=== PATIENT | female | born 1980 | race Caucasian/White ===

== ENCOUNTER 2022-11-25 11:28 | Outpatient (REF) | payer OTHER, SELFPAY ==
[2022-11-26 13:12] LABS: Chlamydia Result Negative (Negative); GC Result Negative (Negative)
== END 2022-11-25 11:29 | disposition home or self-care (01) ==
LOC: LBN 11:28
PROVIDERS: Visit Provider Obstetrics & Gynecology
DX: N94.9 Unspecified condition associated with female genital organs and menstrual cycle (principal); B96.89 Other specified bacterial agents as the cause of diseases classified elsewhere
CPT/HCPCS: 87491; 87591; 87480; 87510; 87660

== ENCOUNTER 2022-12-10 16:05 | Outpatient (REF) | payer BC, SELFPAY | END 2022-12-10 16:06 | disposition home or self-care (01) | LOC: LBN 16:05 | PROVIDERS: Visit Provider Obstetrics & Gynecology | DX: N90.89 Other specified noninflammatory disorders of vulva and perineum (principal) | CPT/HCPCS: 87480; 87510; 87660 ==

== ENCOUNTER 2023-01-07 16:29 | Outpatient (REF) | payer BC, SELFPAY ==
[2023-01-09 22:42] LABS: HSV 1 DNA Result Negative (Negative); HSV 2 DNA Result Negative (Negative)
== END 2023-01-07 16:30 | disposition home or self-care (01) ==
LOC: LBN 16:29
PROVIDERS: Visit Provider Obstetrics & Gynecology Gynecology
DX: N90.89 Other specified noninflammatory disorders of vulva and perineum (principal); Z11.59 Encounter for screening for other viral diseases
CPT/HCPCS: 87529

== ENCOUNTER → 2023-01-19 00:38 | Outpatient (CLI) | payer BC, SELFPAY ==
--- NOTE | 2023-01-19 10:14 | DI.MAMMO_ITS ---
Exam(s) MAMMO SCREENING EXAM: MAMMO SCREENING CLINICAL HISTORY: screening, z12.39. TECHNIQUE: Bilateral full field digital CC and MLO mammographic images were obtained with 3D tomosyn thesis and utilizing computer aided detection (CAD). COMPARISON: None. This is a baseline mammogram on this 42-year-old patient. FINDINGS: Fibroglandular tissue pattern is dense, this somewhat decreasing the sensitivity of the mammogram fin ding hidden underlying lesions. There are no CAD designations. There are no spiculated masses nor malignant appearing microcalcification groups. There is no significant architectural distortion nor skin thickening-retraction. IMPRESSION: Dense bilateral fibroglandular tissue. No obvious radiographic evidence of malignancy. BI-RADS Category 1 - Negative Breast Density - Category C - Heterogeneously dense Breast density Category C or D implies that the patient has dense breast tissue. Dense breast tissue can make it harder to find cancer on a mammogram. Dense breast tissue is also associated with an incr eased risk of breast cancer. This information about the result of the mammogram report was provided to the patient to raise their awareness. Use this report when you speak with the patient about their risks for breast cancer, which includes their family history. At that time, you may recommend additional screening tests (Ultrasoun d or MRI) as these tests may add significant information. A negative radiographic report should not delay biopsy if a dominant or clinically suspicious mass is present. Up to ten percent of cancers are not identified on mammography. A negative report may reinforce clinical impression. Adenosis and dense breasts may obscure an underlying neoplasm. False positive reports average 6 to 10%. Patient will receive a letter notifying them of these results.
== END ==
PROVIDERS: Visit Provider Obstetrics & Gynecology
DX: Z12.31 Encounter for screening mammogram for malignant neoplasm of breast (principal)
CPT/HCPCS: 77063; 77067

== ENCOUNTER 2023-04-13 14:12 | Outpatient (REF) | payer BC, SELFPAY | END 2023-04-13 14:13 | disposition home or self-care (01) | LOC: LBN 14:12 | PROVIDERS: PCP Obstetrics & Gynecology; Visit Provider Obstetrics & Gynecology | DX: N89.8 Other specified noninflammatory disorders of vagina (principal); N94.89 Other specified conditions associated with female genital organs and menstrual cycle | CPT/HCPCS: 87480; 87510; 87660 ==

== ENCOUNTER 2023-05-10 12:51 | Outpatient (REF) | payer BC, SELFPAY | END 2023-05-10 12:52 | disposition home or self-care (01) | LOC: LBN 12:51 | PROVIDERS: PCP Obstetrics & Gynecology; Visit Provider Obstetrics & Gynecology | DX: N76.0 Acute vaginitis (principal); N89.8 Other specified noninflammatory disorders of vagina | CPT/HCPCS: 87480; 87510; 87660 ==

== ENCOUNTER → 2023-06-27 01:53 | Outpatient (CLI) | payer BC, SELFPAY ==
--- NOTE | 2023-06-27 14:30 | DI.MAMMO_ITS ---
Exam(s) MAMMO DIAGNOSTIC UNI US BREAST LT LIMITED EXAM: MAMMO DIAGNOSTIC UNI and U/S breast LT limited CLINICAL HISTORY: left breast lump. TECHNIQUE: Craniocaudal and mediolateral oblique Full Field Digital Mammography views of the left br east with Computer Aided Diagnosis followed by Tomosynthesis and left breast ultrasound. COMPARISON: Comparison is with prior examinations. FINDINGS: Mammography/Tomosynthesis: Masses/Architectural Distortion: None seen. Microcalcifictions: No suspicious pleomorphic-type are seen. Skin Thickening/Nipple Retraction: None. Limited left breast US: Echotexture: Normal appearance of the glandular tissue. Shadowing: No suspicious foci. Cyst: None. Solid lesions: None seen. Ductal dilation: None. IMPRESSION: 1. No evidence of malignancy is noted. 2. Unless there is more urgent need, follow-up screening mammography is recommended, as per [place] [employer] guidelines. 3. The findings were discussed with the patient on the date of the examination. BI-RADS Category 1 - Negative Breast Density - Category C - Heterogeneously dense Breast density Category C or D implies that the patient has dense breast tissue. Dense breast tissue can make it harder to find cancer on a mammogram. Dense breast tissue is also associated with an incr eased risk of breast cancer. This information about the result of the mammogram report was provided to the patient to raise their awareness. Use this report when you speak with the patient about their risks for breast cancer, which includes their family history. At that time, you may recommend additional screening tests (Ultrasoun d or MRI) as these tests may add significant information. A negative radiographic report should not delay biopsy if a dominant or clinically suspicious mass is present. Up to ten percent of cancers are not identified on mammography. A negative report may reinforce clinical impression. Adenosis and dense breasts may obscure an underlying neoplasm. False positive reports average 6 to 10%. Patient will receive a letter notifying them of these results.
== END ==
PROVIDERS: PCP Obstetrics & Gynecology; Visit Provider Obstetrics & Gynecology
DX: N63.25 Unspecified lump in the left breast, overlapping quadrants; R92.322 Mammographic fibroglandular density, left breast
CPT/HCPCS: 76642; 77061; 77065; G0279

== ENCOUNTER 2023-09-21 01:44 | Outpatient (CLI) | payer BC, SELFPAY ==
[2023-09-21 10:20] LABS: Abs Immature Grans 0.02 10^3/uL (0.0-0.06); Absolute Basophil Count 0.05 10^3/uL (0.0-0.2); Absolute Eosinophil Count 0.12 10^3/uL (0.0-0.7); Absolute Lymphocyte Count 1.58 10^3/uL (1.2-3.4); Absolute Monocyte Count 0.43 10^3/uL (0.1-0.8); Absolute Neutrophil Count 4.37 10^3/uL (1.2-6.7); Basophils % 0.8 %; Eosinophils % 1.8 %; HCT 37.8 % (36.0-46.0); HGB 12.8 g/dL (11.2-15.7); Immature Grans % 0.3 %; MCH 29.4 pg (27.0-33.0); MCHC 33.9 % (32.0-36.0); MCV 87 fL (80-95); MPV 10.4 fL (8.0-11.0); Monocytes % 6.5 %; Neutrophils % 66.6 %; Platelet Count 292 10^3/uL (130-400); RBC 4.36 10^6/uL (3.93-5.22); RDW 13.4 % (11.7-14.6); RDW-SD 42.5 fL; WBC 6.57 10^3/uL (4.4-10.8)
[2023-09-21 10:36] LABS: ALT 18 U/L (14-59); AST 14 U/L (15-37); Albumin 3.6 g/dL (3.4-5.0); Alkaline Phosphatase 63 U/L (46-116); Anion Gap 5.6 mmol/L (3-11); BUN 12 mg/dL (7-18); Bilirubin, Total 0.39 mg/dL (0.2-1.0); CO2 30.4 mmol/L (21.0-32.0); CREATININE 0.8 mg/dL (0.55-1.02); Calcium 9.3 mg/dL (8.5-10.1); Chloride 106 mmol/L (98-107); Estimated GFR 94.28 (mL/min/1.73m2); Glucose 103 mg/dL (74-106); Potassium 4.1 mmol/L (3.5-5.1); Sodium 142 mmol/L (136-145)
[2023-09-22 09:16] LABS: IgG 989 mg/dL (610-1616)
== END 2023-09-21 01:45 | disposition home or self-care (01) ==
PROVIDERS: PCP Obstetrics & Gynecology; Visit Provider Allergy & Immunology
DX: D83.9 Common variable immunodeficiency, unspecified (principal)
CPT/HCPCS: 36415; 80053; 82784; 85025

== ENCOUNTER 2023-11-02 11:36 | Outpatient (REF) | payer BC, SELFPAY | END 2023-11-02 11:37 | disposition home or self-care (01) | LOC: LBN 11:36 | PROVIDERS: PCP Obstetrics & Gynecology; Visit Provider Obstetrics & Gynecology | DX: N89.8 Other specified noninflammatory disorders of vagina (principal); Z00.00 Encounter for general adult medical examination without abnormal findings; F43.21 Adjustment disorder with depressed mood; D84.9 Immunodeficiency, unspecified | CPT/HCPCS: 87480; 87510; 87660 ==

== ENCOUNTER 2024-01-04 02:55 | Outpatient (CLI) | payer BC, SELFPAY ==
[2024-01-04 15:08] LABS: Panorama Kit Sent via Fed Ex
[2024-01-04 15:16] LABS: Abs Immature Grans 0.02 10^3/uL (0.0-0.06); Absolute Basophil Count 0.03 10^3/uL (0.0-0.2); Absolute Eosinophil Count 0.07 10^3/uL (0.0-0.7); Absolute Lymphocyte Count 1.69 10^3/uL (1.2-3.4); Absolute Neutrophil Count 4.53 10^3/uL (1.2-6.7); Basophils % 0.4 %; HCT 35.6 % (36.0-46.0); HGB 11.9 g/dL (11.2-15.7); Immature Grans % 0.3 %; Lymphocytes % 24.7 %; MCH 29.7 pg (27.0-33.0); MCHC 33.4 % (32.0-36.0); MCV 89 fL (80-95); MPV 10.3 fL (8.0-11.0); Monocytes % 7.3 %; Neutrophils % 66.3 %; Platelet Count 243 10^3/uL (130-400); RBC 4.01 10^6/uL (3.93-5.22); RDW 13.2 % (11.7-14.6); RDW-SD 43.3 fL; WBC 6.84 10^3/uL (4.4-10.8)
[2024-01-04 15:26] LABS: Hemoglobin A1C 5.6 % (<5.7)
[2024-01-04 22:37] LABS: Hepatitis B Surface Ag Negative (Negative)
[2024-01-04 23:09] LABS: Hepatitis C Ab w Rflx HCV PCR Negative (Negative)
[2024-01-04 23:10] LABS: HIV-1/2 Ag & Ab Screen Negative (Negative)
[2024-01-05 09:22] LABS: IgG 788 mg/dL (610-1616)
[2024-01-05 10:57] LABS: Varicella IgG Antibody Positive (See Note)
[2024-01-05 11:02] LABS: Rubella IgG Ab (UVM) Positive (See Note)
[2024-01-06 16:53] LABS: Syphilis IgG w/Reflex Nonreactive (Nonreactive)
== END 2024-01-04 02:56 | disposition home or self-care (01) ==
LOC: LBO 02:55
PROVIDERS: Allergy & Immunology; PCP Nurse Practitioner Family; Visit Provider Advanced Practice Midwife
DX: Z34.91 Encounter for supervision of normal pregnancy, unspecified, first trimester (principal); Z00.00 Encounter for general adult medical examination without abnormal findings; D83.9 Common variable immunodeficiency, unspecified; Z33.1 Pregnant state, incidental; Z51.81 Encounter for therapeutic drug level monitoring
CPT/HCPCS: 36415; 82784; 86787; 86803; 86850; 86900; 86901; 87340; 87389; 83036; 85025; 86762; 86780

== ENCOUNTER 2024-01-04 15:32 | Outpatient (REF) | payer BC, SELFPAY ==
--- NOTE | 2024-01-04 14:00 | PAPFT_PTH ---
PATIENT: Cookie Richards LOC: [facility] ([facility]) U#:[id number] AGE/SX: 43/F ROOM: RE01/04/[address]: Moon Fernandez CNM : 1980 BED: DIS: 01/04/2024 SPEC #: [id number] RECD: 01/04/24 17:41 STATUS: HOLLY RETaurus #: [id number] DARRELL: 01/04/24 14:[address]: Moon Fernandez DEPT: [facility] Cytology RECD BY: Sophie Collins ENTERED: 01/04/24 17:41 SP TYPE: PAPFT OTHR DR: America Veloz APRN Tissues: 1 - CX/ENDOCX FOR PAP SMEARS Procedures: PAP THIN PREP/[facility] Screening HPV DNA PROBE Comments: [id number] (HPV 16 & 18/45) (CHLAMYDIA/GC)
[2024-01-05 12:28] LABS: Chlamydia Result Negative (Negative); GC Result Negative (Negative)
== END 2024-01-04 15:33 | disposition home or self-care (01) ==
LOC: LBN 15:32
PROVIDERS: PCP Nurse Practitioner Family; Visit Provider Advanced Practice Midwife
DX: Z34.91 Encounter for supervision of normal pregnancy, unspecified, first trimester (principal); Z3A.11 11 weeks gestation of pregnancy
CPT/HCPCS: 87491; 87591; 88142; 87086; 87480; 87510; 87624; 87660

== ENCOUNTER 2024-09-19 22:40 | Emergency (ER) | payer BC, SELFPAY ==
[2024-09-19 22:45] VITALS: BP 157/85; PULSE 96; RESP 20; TEMP 37.5; O2SAT 100
[2024-09-19 22:48] VITALS: BP 157/85; PULSE 96; RESP 20; TEMP 37.5; O2SAT 100
[2024-09-19 23:44] VITALS: PULSE 92; O2SAT 100
[2024-09-19 23:47] VITALS: BP 132/74; PULSE 101; O2SAT 99
--- NOTE | 2024-09-19 23:47 | W.ED.GENAD ---
Discharge Plan Disposition Patient Disposition: Home Condition: Good Discharge Details Clinical Impression: CVID (common variable immunodeficiency), Bronchitis, Pneumonia Primary Care Provider: America Veloz ED Provider: Lynn Pittman Home Meds and New Rx's Prescriptions: New azithromycin 250 mg tablet 250 mg PO DAILY Qty: 4 0RF amoxicillin-pot clavulanate 875-125 mg tablet 1 tab PO BID Qty: 9 0RF Continued IVIG IV valacyclovir [Valtrex] 500 mg tablet 500 mg PO DAILY PRN (Reason: cold sores) Qty: 90 3RF budesonide-formoterol [Symbicort] 80-4.5 mcg/actuation HFA aerosol inhaler 2 puff inhalation BID PRN gentamicin 40 mg/mL solution 40 mg IM BID PRN (Reason: sinus symptoms) Qty: 50 5RF Rx Instructions: Intranasal: dilute and irrigate sinuses 1-2 times QD PRN albuterol sulfate 90 mcg/actuation HFA aerosol inhaler 2 puff inhalation Q6H PRN (Reason: shortness of breath or wheezing) Qty: 8.5 1RF Rx Instructions: Fill with what insurance will cover. Brand or Generic clindamycin phosphate 2 % gel 1 appful vaginal ONCE Qty: 8 2RF Rx Instructions: as a single dose clindamycin phosphate 2 % cream 1 appful vaginal QHS Qty: 40 4RF Rx Instructions: for 7 days Discharge Instructions Instructions: Bronchitis, Adult ED, Pneumonia, Adult ED Additional Instructions: Azithromycin once a day for the next 4 days. Amoxicillin-clauvanate twice a day for the next 4 days. Call your primary care doctor in the morning to schedule an appointment for within the next 48 hours to followup on your visit today. They may want you to continue antibiotics for longer. YOU NEED TO FOLLOWUP ON YOUR TICK PANEL WITH YOUR PRIMARY CARE DOCTOR- WE WILL NOT CALL YOU WITH THE RESULTS Return to the emergency department for new or worsening symptoms including fever, rash, vomiting, abdominal pain, difficutly breathing, or if you have any other concerns. Referrals: America Veloz APRN [Primary Care Provider, Family Practice] [facility] General Mode of arrival: ambulatory. Date/Time Provider Initiated Documentation: 09/19/24 22:42. Limitations to Documentation: no limitations. Information obtained by: patient. HPI Narrative: 44yo F with hx of CVID presenting for chills. Has had two weeks of URI symptoms, cough/rhinnorhea/sore throat which initially seemed to be improving but have gotten worse over the past 2-3 days. Mild shortness of breath improves with albuterol. This evening around 10pm began to have chills. No fevers, rash, chest pain, nausea, vomiting, diarrhea, abdominal pain, dysuria, hematuria, or other concerns. Last dose of her immunotherapy was about two weeks ago and was a few days late per patient. Also reports tick bite within the last two weeks, not engorged, for which she received a dose of doxycline. Related Data Home Medications ?Medication ?Instructions ?Recorded ?Confirmed IVIG IV 11/25/22 09/01/24 budesonide-formoterol HFA 80 2 puff inhalation BID PRN 11/02/23 09/19/24 mcg-4.5 mcg/actuation aerosol inhaler (Symbicort) valacyclovir 500 mg tablet 500 mg PO DAILY PRN cold sores #90 01/04/24 09/19/24 (Valtrex) tabs albuterol sulfate 90 mcg/actuation 2 puff inhalation Q6H PRN 02/28/24 09/19/24 aerosol inhaler shortness of breath or wheezing #8.5 grams gentamicin 40 mg/mL injection 40 mg IM BID PRN sinus symptoms 02/28/24 09/19/24 solution #50 mL clindamycin phosphate 2 % vaginal 1 appful vaginal ONCE #8 grams 05/14/24 09/19/24 gel clindamycin phosphate 2 % vaginal 1 appful vaginal QHS #40 grams 06/14/24 09/19/24 cream amoxicillin 875 mg-potassium 1 tab PO BID #9 tabs 09/20/24 clavulanate 125 mg tablet azithromycin 250 mg tablet 250 mg PO DAILY #4 tabs 09/20/24 Previous Rx's ?Medication ?Instructions ?Recorded valacyclovir 500 mg tablet 500 mg PO DAILY PRN cold sores #90 01/04/24 (Valtrex) tabs albuterol sulfate 90 mcg/actuation 2 puff inhalation Q6H PRN 02/28/24 aerosol inhaler shortness of breath or wheezing #8.5 grams gentamicin 40 mg/mL injection 40 mg IM BID PRN sinus symptoms 02/28/24 solution #50 mL clindamycin phosphate 2 % vaginal 1 appful vaginal ONCE #8 grams 05/14/24 gel clindamycin phosphate 2 % vaginal 1 appful vaginal QHS #40 grams 06/14/24 cream amoxicillin 875 mg-potassium 1 tab PO BID #9 tabs 09/20/24 clavulanate 125 mg tablet azithromycin 250 mg tablet 250 mg PO DAILY #4 tabs 09/20/24 Allergies Allergy/AdvReac Type Severity Reaction Status Date / Time No Known Allergies Allergy Verified 09/19/24 22:49 General Stated Complaint: RespSymp ARIELLE: 3 Review of Systems Narrative: see HPI Exam Narrative Exam Narrative: General: Alert, well appearing, well nourished, in no acute distress. Head: Normocephalic, atraumatic Neck: Trachea midline, ?Neck supple. ENT: ?MMM.? No oropharygeal lesions or exudate. Cardiac: ?RRR, no murmurs appreciated Resp: No respiratory distress. CTAB. Abd: ?Soft, non-distended, nontender : ?No suprapubic tenderness. Extremities: ?No deformities.? No peripheral edema. Neurologic: GCS 15. ? 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 Slightly elevated HR on arrival in 90's after ambulating to triage; vital signs otherwise reassuring. HR decreased to mid 80's shortly after arrival without intervention. Well appearing on exam, well perfused, no respiratory distress. Has not had fevers. Does not appear septic. Given hx of CVID, will evaluate with labs and CXR . Low suspicion for tick bourne illness based on hx; patient requests tick panel which is not unreasonable. She understands that she will need to followup with her PCP regarding this result. Labs reviewed as below, CBC with leukoctyosis to 16 (nonspecific), CMP with no actionable abnormalities, UA not infected, respiratory viral panel negative. CXR independently reviewed; no focal pneumonia or pneumothorax on my view, radiology read with concern for LLL pneumonia. On reassessment she remains well appearing with reassuring vital signs, HR mostly 80's-90's, and no respiratory distress. Given CVID and elevated WBC, blood cultures sent and will treat for acute bronchitis and possible pneumonia and cover for mycoplasm with 5 day course of azithromycin and amox-clauv. She was advised to followup closely with her PCP and the importance of discussing the results of her tick panel with her PCP was stressed as well as the possibility that her PCP may need to extend her antibiotic course based on how she is doing. Discharged home; discharge instructions and return precautions were reviewed with patient who verbalized understanding. All questions were answered and she is in full agreement with the plan. Lab Data Lab results reviewed: Yes I reviewed the patient's lab results. Labs: Laboratory Tests Range/Units 09/19/24 09/19/24 09/20/24 23:22 23:48 00:18 WBC (4.4-10.8) 10^3/uL 16.74 H RBC (3.93-5.22) 10^6/uL 4.52 Hgb (11.2-15.7) g/dL 12.9 Hct (36.0-46.0) % 38.5 MCV (80-95) fL 85 MCH (27.0-33.0) pg 28.5 MCHC (32.0-36.0) % 33.5 RDW (11.7-14.6) % 12.6 Plt Count (130-400) 10^3/uL 226 MPV (8.0-11.0) fL 10.1 Immature Gran % % 0.4 Neutrophils % % 92.0 Lymphocytes % % 3.9 Monocytes % % 3.0 Eosinophils % % 0.4 Basophils % % 0.3 Nucleated RBC % (0.0-0.3) % 0.0 Absolute Neutrophils (1.2-6.7) 10^3/uL 15.40 H Absolute Lymphocytes (1.2-3.4) 10^3/uL 0.65 L Absolute Monocytes (0.1-0.8) 10^3/uL 0.50 Absolute Eosinophils (0.0-0.7) 10^3/uL 0.07 Absolute Basophils (0.0-0.2) 10^3/uL 0.05 Sodium (136-145) mmol/L 135 L Potassium (3.5-5.1) mmol/L 3.5 Chloride (98-107) mmol/L 97 L Carbon Dioxide (21.0-32.0) mmol/L 29.0 Anion Gap (3-11) mmol/L 9.0 BUN (7-18) mg/dL 10 Creatinine (0.55-1.02) mg/dL 0.9 Est GFR (CKD-EPI 2020) (mL/min/1.73m2) 81.35 Glucose (74-106) mg/dL 121 H Calcium (8.5-10.1) mg/dL 9.3 Total Bilirubin (0.2-1.0) mg/dL 0.4 AST (15-37) U/L 20 ALT (14-59) U/L 24 Alkaline Phosphatase (46-116) U/L 84 Total Protein (6.4-8.2) g/dL 8.0 Albumin (3.4-5.0) g/dL 4.1 Urine Color (Yellow) Yellow Urine Clarity (Clear) Clear Urine pH (5-8) 6.0 Ur Specific [place] (1.005-1.025) <= 1.005 Urine Protein (Neg-Trace) mg/dL Negative Urine Ketones (Negative) mg/dL Negative Urine Blood (Negative) Negative Urine Nitrite (Negative) Negative Urine Bilirubin (Negative) Negative Urine Urobilinogen (Up to 0.2) mg/dL 0.2 Ur Leukocyte Esterase (Negative) Negative Urine Glucose (Negative) mg/dL Negative COVID-19 Source Nasopharynx SARS-CoV-2 (PCR) (Negative) Negative Influenza Type A (PCR) (Negative) Negative Influenza Type B (PCR) (Negative) Negative RSV (PCR) (Negative) Negative PFSH All Active Problems (Updated 09/20/24 @ 01:42 by Lynn Pittman MD) Pneumonia (Acute) Bronchitis (Acute) CVID (common variable immunodeficiency) (Acute) Elevated cholesterol (Chronic) Sinusitis (Acute) Depressed mood (Acute) Abnormal genetic test during (Acute) History of prior with IUGR (Acute) Bacterial vaginitis (Acute) Recurrent issue - Clinda seems to work better then metrogel Internal nasal lesion (Acute) Excess sun exposure (Acute) Reactive airway disease (Acute) Immunodeficiency (Acute) Grief (Chronic) Lumbar spondylosis (Acute 02/10/16) Medical History Trisomy 21 of fetus, current , single gestation Elderly multigravida Irritable bowel disease (06/22/16) Preventative health care Left breast lump Femoral acetabular impingement (12/14/16) History of abnormal cervical Pap smear CIN3 on colp with LEEP showing ROXIE 1 in 2006. All normal paps since. Common variable immunodeficiency (12/21/17) Dyspareunia in female resolved with vaginal and vulvar E2 cream. Lesion of vulva tender at posterior labial commisure. Rx with E2 cream with good response. Migraine Anxiety Anemia Asthma (05/16/15) Surgical History H/O sinus surgery Family History Paternal Grandfather Diabetes Maternal Grandfather Heart attack Heart disease Mother Hypertension Father Anxiety Depression Suicide committed suicide a couple years ago. Paternal Grandmother Diabetes Maternal Grandmother Hypertension Breast cancer Social History Smoking/Tobacco Use Status: Never Smoking risk assessment performed?: Yes Alcohol Intake: current Alcohol Intake frequency: a few times a week Drug use: Never Adopted: No Caregiver/Support person: No Foster care: No Household members: spouse and children Housing: house Number of Children: 1 number of grandchildren: 0 Communication Needs: None Education Level: master's degree Do you need help understanding health information?: Never current occupation: [employer] Pets and animals: Yes (2 Dogs, 1 cat) Pets and animals: cat(s) and dog(s) Sexually active: Yes Do you think of yourself as: straight/heterosexual Current gender identity: female How often do you talk on the phone with friends or family?: twice per week How often do you get together with friends or relatives?: once per week Do you belong to any clubs or organized social groups?: no Panel score (0-1 are the most socially isolated patients): 1 What type of physical activity do you participate in: bicycling and additional Details: Hiking, skiing, walking, biking, running Duration: 15-30 minutes/day Frequency: 1-2 times per week Charline/Adventist: None Special charline needs: No Seatbelt use: always Helmet use: Yes Drive intox or ride w/intox 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 Date GA/Weeks # Preg Succ Route Wgt Sex Labor Lgth Anesthesia Location [facility] 09/29/21 36 No Yes vaginal 2182.913 g Male 5 hrs [facility] 01/13/24 12 No No [facility] Delivery Date: 09/29/21 Last Updated by: Moon Villanueva, IOL for IUGR (miso x2), AROM, quick labor Delivery Date: 01/13/24 Last Updated by: Belen Cerrato MD T21 with anomales - D&C @[facility] PAWSS Have you Been Recently Intoxicated or Drunk Within the Last 30 days?: No Have you Ever Experienced Previous Episodes of Alcohol Withdrawal?: No Have you ever Experienced Withdrawal Seizures?: No Have you ever Experienced Delirium Tremens(DT)s?: No Have you ever undergone Alcohol Rehabilitation Treatment (i.e, inpt ot outpatient treatment programs)?: No Have you ever Experienced Blackouts?: No Have you ever Combined Alcohol with other Downers within the last 90 days?: No Have you ever Combined Alcohol with any other Substance of Abuse during the last 90 days?: No Positive Blood Alcohol level on Presentation? [PCS.BAL]: No Evidence of Increased Autonomic Activity (i.e. HR>120, tremor, sweating, agitation, nausea)?: No Result: 0
[2024-09-19 23:50] VITALS: PULSE 92; O2SAT 100
[2024-09-19 23:54] LABS: Abs Immature Grans 0.06 10^3/uL (0.0-0.06); Absolute Basophil Count 0.05 10^3/uL (0.0-0.2); Absolute Eosinophil Count 0.07 10^3/uL (0.0-0.7); Absolute Lymphocyte Count 0.65 10^3/uL (1.2-3.4); Basophils % 0.3 %; Eosinophils % 0.4 %; HCT 38.5 % (36.0-46.0); HGB 12.9 g/dL (11.2-15.7); Immature Grans % 0.4 %; Lymphocytes % 3.9 %; MCH 28.5 pg (27.0-33.0); MCHC 33.5 % (32.0-36.0); MCV 85 fL (80-95); MPV 10.1 fL (8.0-11.0); Platelet Count 226 10^3/uL (130-400); RBC 4.52 10^6/uL (3.93-5.22); RDW 12.6 % (11.7-14.6); RDW-SD 38.7 fL; WBC 16.74 10^3/uL (4.4-10.8)
[2024-09-20] VITALS (10 sets, daily range): BP systolic 121–136; BP diastolic 68–77; PULSE 84–96; O2SAT 96–99
[2024-09-20 00:10] LABS: ALT 24 U/L (14-59); AST 20 U/L (15-37); Albumin 4.1 g/dL (3.4-5.0); Alkaline Phosphatase 84 U/L (46-116); BUN 10 mg/dL (7-18); Bilirubin, Total 0.4 mg/dL (0.2-1.0); CREATININE 0.9 mg/dL (0.55-1.02); Calcium 9.3 mg/dL (8.5-10.1); Chloride 97 mmol/L (98-107); Estimated GFR 81.35 (mL/min/1.73m2); Glucose 121 mg/dL (74-106); Potassium 3.5 mmol/L (3.5-5.1); Sodium 135 mmol/L (136-145)
[2024-09-20 00:30] LABS: Bilirubin Negative (Negative); Blood Negative (Negative); Clarity Clear (Clear); Glucose Negative (Negative); Ketones Negative (Negative); Leukocyte Esterase Negative (Negative); Nitrite Negative (Negative); Specific Gravity <= 1.005 (1.005-1.025); Urobilinogen 0.2 mg/dL (Up to 0.2)
[2024-09-20 00:36] LABS: COVID-19 PCR Negative (Negative); Influenza A PCR Negative (Negative); Influenza B PCR Negative (Negative); RSV PCR Negative (Negative); Source Nasopharynx
--- NOTE | 2024-09-20 00:42 | DI.RAD_ITS ---
Exam(s) XR CHEST 2V PA LATERAL EXAM: XR CHEST 2V PA LATERAL CLINICAL HISTORY: cough, chills, CVID TECHNIQUE: 2D digital imaging was performed of the chest. Two images were obtained. PA and lateral views were obtained. COMPARISON: No exams were available for comparison FINDINGS: MEDIASTINUM: Normal. HEART: Normal. PULMONARY VASCULATURE: Normal. LUNGS: There is a left lower lobe infiltrate. This is best appreciated on the lateral view. The lungs are otherwise clear. PLEURAL SPACE: No pleural effusion or pneumothorax. BONE:Within normal limits for the patient's age. OTHER FINDINGS:Normal. IMPRESSION: 1. There is an infiltrate seen in the left lower lobe. 2. The preliminary [facility] report was reviewed. DATA REPOSITORY: RADIATION DOSE DELIVERED:
[2024-09-20] MEDS: Azithromycin 250 MG TAB 500 MG PO (01:29)
[2024-09-20] MEDS: Amoxicillin 875/Clav. 125 TAB PO (01:29)
--- NOTE | 2024-09-20 01:40 | DI.[facility]_ITS ---
PROCEDURE INFORMATION: Exam: XR Chest Exam date and time: 09/20/2024 12:38 AM Age: 44 years old Clinical indication: Cough and other: Chills; Cough, chills TECHNIQUE: Imaging protocol: Radiologic exam of the chest. Views: 2 views. COMPARISON: No relevant prior studies available. FINDINGS: Lungs: Patchy pulmonary opacification within the left lower lobe. The lungs are otherwise clear without infiltrate or edema. Pleural spaces: No pleural effusion. No pneumothorax. Heart/Mediastinum: The cardiac silhouette is normal in size. Bones/joints: No acute osseous abnormality. IMPRESSION: Left lower lobe infiltrate. Radiographic follow-up to resolution is recommended. Dictated and Authenticated by: Lynn Yusuf MD. Orderin Toya Bailey MD
[2024-09-21 10:33] LABS: Lyme Ab w Rflx to Lyme Confirm Negative (Negative)
[2024-09-22 23:19] LABS: Anaplasma phagocytophilum Negative (Negative); B. miyamotoi PCR Negative (Negative); Babesia divergens/MO-1 Negative (Negative); Babesia duncani Negative (Negative); Babesia microti Negative (Negative); Ehrlichia chaffeensis Negative (Negative); Ehrlichia ewingii/canis Negative (Negative); Ehrlichia muris eauclairensis Negative (Negative)
== END 2024-09-20 01:48 | disposition home or self-care (01) ==
PROVIDERS: Emergency Provider Student in an Organized Health Care Education/Training Program; PCP Nurse Practitioner Family
DX: J20.9 Acute bronchitis, unspecified (principal); J18.9 Pneumonia, unspecified organism; D83.9 Common variable immunodeficiency, unspecified
CPT/HCPCS: 80053; 81025; 87040; 87637; 87798; 99284; 71046; 81003; 85025; 86618

== ENCOUNTER 2024-10-03 04:11 | Outpatient (CLI) | payer BC, SELFPAY ==
--- NOTE | 2024-10-03 14:28 | TELEFU_ITS ---
Date of service: 10/03/24 Time of Service: 14:30 Nutrition Note NOTE: Completed referred nutrition visit with Haylee telephonically and included follow up email with summary and resources we discussed. She was referred for pure hypercholesterolemia and Haylee states she has had high cholesterol since a child. 07/12/24 total chol was 247, LDL 148, HDL 81, and TGL's89. HDL to TGL ratio is 1.1 (<2.0 considered ideal), total cholesterol to HDL ratio is 3.05 (<3.5 is optimal) Vitamin D also low - she was taking ~4,000IU per day but relates she needs to get more consistent with it as she stopped. I related correlation between low D and high cholesterol but highlighted importance of adequate vitamin D levels for a number of reasons in addition. She voices she would probably close to vegetarian if it weren't for her family liking meat - she wouldn't miss it much. Tries to have low red meat intake. She might skip breakfast half the week, might have leftovers for lunch. 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 This can be a barrier to consistently hitting fiber and protein goals, may result in higher than desired refined carb intake, and can limit the approach of getting strategic food choices which can help lower LDL as consistently as needed to affect significant changes. We discussed a good path to take would be get an idea of ideal diet approach including supplement recommendations, macros. Will send this out and offer follow up visits, more resources if needed. If insurance covers it, NMR LipoProfile test could detail more about the size and number of LDL particles to help further assess disease risk if desired. Encouraged stress mgt, sleep, exercise as continued habits to keep in good shape. diet recommendations include <10%kcals SFA's and added sugars, at least 30g fiber, and including strategic foods and bevs often such as green tea, hibiscus tea, garlic, onion family, nuts, whole soy, beans and pulses, deep green leafie s, and will suggest plant sterols supp as trial as well. Time Spent in Nutritional Counseling and Treatment: 20 min
== END 2024-10-03 04:12 | disposition home or self-care (01) ==
LOC: DS 04:12
PROVIDERS: PCP Nurse Practitioner Family; Visit Provider Dietitian, Registered
DX: E78.00 Pure hypercholesterolemia, unspecified (principal)
CPT/HCPCS: 00123; 97802

== ENCOUNTER 2024-11-07 13:34 | Outpatient (CLI) | payer BC, SELFPAY ==
--- NOTE | 2024-11-07 14:30 | DI.US_ITS ---
APPROVED REPORT EXAM: Comprehensive 2D, Doppler, and color-flow Echocardiogram Patient Location: Out-Patient Road Equipment Operator: Nichol Pitts RDCS (AE) Indications: Murmur Other Information Study Quality: Adequate Conclusion Normal left ventricular wall thickness and chamber size. Ejection fraction is 60 to 65%. Wall motion is normal Normal right ventricular size and function Both atria are normal in size There is no structural or hemodynamically significant valvular disease Wall motion Left Ventricle The left ventricle is normal size. The left ventricular systolic function is normal. The left ventricular ejection fraction is within the normal range. There is normal left ventricular wall thickness. There is normal LV segmental wall motion. There is no ventricular septal defect visualized. LVEF is 60-65%. Right Ventricle The right ventricle is normal size. The right ventricular systolic function is normal. Atria The left atrium size is normal. The right atrium size is normal. The interatrial septum is intact with no evidence for an atrial septal defect. Aortic Valve The aortic valve is normal in structure. Aortic valve is trileaflet. There is no aortic valvular stenosis. No aortic regurgitation is present. Mitral Valve The mitral valve is normal in structure. No evidence of mitral valve stenosis. Trace mitral regurgitation. Tricuspid Valve The tricuspid valve is normal in structure. There is no tricuspid valve stenosis. Trace tricuspid regurgitation. Unable to assess PA pressure. Pulmonic Valve The pulmonary valve is normal in structure. There is no pulmonic valvular stenosis. There is no pulmonic valvular regurgitation. Great Vessels The aortic root is normal in size. The ascending aorta is normal in size. Aortic arch is normal in caliber. IVC is normal in size and collapses >50% with inspiration. Pericardium There is no pericardial effusion. 2D Dimensions IVSD d PLAX 0.71 cm F: 0.6-1.0 Ao Root d 2.56 cm F: 2.7 - 3.3 LVPW d PLAX 0.75 cm F: 0.6 - 1.0 Ao Asc Diam d 2.93 cm F: 2.3 - 3.1 LVID d PLAX 4.54 cm F: 3.8 - 5.2 LVDs 2.93 cm F: 2.2 - 3.5 LV EF Teichholz 64.9 % FS 35.40 % LV EDV (Teich) 94.4 mL LV ESV (Teich) 33.1 mL M-Mode TAPSE 2.90 cm (M/F) >1.7 Auto EF LV EDV A4C 95.8 mL LV EDV A2C 117.2 mL LV EDV BP 105.8 mL LV ESV A4C 35.2 mL LV ESV A2C 44.8 mL LV ESV BP 39.3 mL LVEF(%) A4C 63.2 % LVEF(%) A2C 61.8 % LVEF(%) BP 62.8 % LV SV A4C 60.5 ml LV SV A2C 72.4 ml LV SV BP 66.4 ml LV CO A4C 4.0 L/min LV CO A2C 4.9 L/min LV CO BP 4.4 L/min HR A4C 65.58 BPM HR A2C 67.80 BPM LV EDV Index (BP) LA Volume LA Length A4C 4.6 cm LA Length A2C 4.4 cm LA Area A4C s 12.25 cm2 LA Area A2C s 12.72 cm2 LA Vol A4C A-L 27.79 mL LA Vol A2C A-L 31.35 mL LA Vol Biplane A-L 30.2 mL LA Vol/BSA A4C A-L LA Vol/BSA A2C A-L LA Vol/BSA BP A-L 18.2 mL/m2 LA Vol A4C MOD 25.5 mL LA Vol A2C MOD 28.7 mL LA Vol BP MOD 27.5 mL RA Volume RA Area A4C 10.1 cm2 RA ESV A4C (A-L) 21.4mL RA Vol/BSA A4C A-L RA Length A4C 4.0 cm RA ESV A4C (MOD) 20.6mL LV Diastology MV E' medial 0.149 (>0.07 m/s) MV E Vmax 0.99 (0.4-1.3 m/s) MV E/E' MED 6.63 (<14) MV A Vmax 0.55 (0.4-1.3 m/s) MV E' lateral 0.190 (>0.1 m/s) E/A Ratio 1.8 MV E/E' LAT 5.20 (<14) MV E' Average 0.170 m/s MV E/E'(average) 5.83 Aortic Valve AoV Vmax 1.52 m/s LVOT Vmax 1.18 m/s AoV Peak Grad 9.3 mmHg LVOT Peak Grad 5.6 mmHg AoV Area (Vmax) 1.88 cm2 LVOT VTI 0.231 m AoV VTI 0.317 m LVOT Mean Grad 3.1 mmHg AoV Mean Edi. 1.08 m/s LVOT SV 55.85 mL AoV Mean Grad 5.3 mmHg LVOT Diam s 1.75 cm AoV Area (VTI) 1.76 cm2 AV Regurg Peak Gr. 9.27 mmHg Velocity Ratio 0.78 Mitral Valve MV DT 221 (160-240 msec) MV Vmax TIPS 0.83 m/s MV Mean Grad 1.1 (<2mmHg) MV VTI 0.308 m Pulmonary Valve PV Vmax 1.01 (0.5-1.5 m/s) RVOT Vmax 0.79 m/s PV Peak Grad 4.1 mmHg RVOT Peak Gr. 2.5 mmHg PV Mean Edi 0.77 m/s RVOT VTI 0.174 m PV Mean Grad 2.5 mmHg RVOT Mean Gr. 1.4 mmHg Tricuspid Valve RA Pressure 3.00 mmHg TV S' 0.18 m/s
== END 2024-11-07 13:54 ==
LOC: DI 13:34
PROVIDERS: PCP Nurse Practitioner Family; Visit Provider Internal Medicine Cardiovascular Disease
DX: Z86.79 Personal history of other diseases of the circulatory system (principal); Z09 Encounter for follow-up examination after completed treatment for conditions other than malignant neoplasm
CPT/HCPCS: 93306

== ENCOUNTER 2025-03-13 00:55 | Outpatient (CLI) | payer BC, SELFPAY ==
[2025-03-13] MEDS: Levalbuterol HFA 15 GM INH 4 PUFF IH (10:59)
[2025-03-13] MEDS: Inhaler, Assist Device 1 EACH MC (10:59)
--- NOTE | 2025-03-13 13:42 | W.PFT ---
Date of service: 03/13/25 Time of Service: 09:54 Pulmonary Function Test Result Indications: Asthma Impression 1. Good patient effort was noted. ATS standards for reproducibility were met. 2. Spirometry showed an FEV1:FVC ratio below predicted, which can be seen with mild obstructive lung disease, or be a normal variant. 3. Following the administration of a bronchodilator there was not a significant response 4. TLC was normal. No evidence of restrictive lung disease 5. DLCO was normal indicating normal alveolar gas exchange
== END 2025-03-13 00:56 | disposition home or self-care (01) ==
LOC: RT 00:55
PROVIDERS: PCP Nurse Practitioner Family; Visit Provider Allergy & Immunology
DX: J45.909 Unspecified asthma, uncomplicated (principal); J44.9 Chronic obstructive pulmonary disease, unspecified
CPT/HCPCS: 94060; 94726; 94729